=== PATIENT | female | born 1985 | race Caucasian/White ===

== ENCOUNTER 2017-11-05 15:36 | Outpatient (CLI) | payer OTHER ==
[2014-01-19 03:55] VITALS: BP 131/77
--- NOTE | 2017-11-05 16:39 | Diagnostic Imaging Report ---
[facility] [address] [facility] [address] 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 No fracture no dislocation. No soft tissue abnormality. Impression: No acute appearing osseous abnormality. Electronically signed on Nov 05, 2017 4:36:19 PM HUMANITIES DIVISION CHAIR by: Todd WU
--- NOTE | 2017-11-05 16:40 | Diagnostic Imaging Report ---
[facility] [address] [facility] [address] 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 No other cortical irregularities. No joint effusion. Impression: Possible radial head hairline fracture. Recommend obtaining CT elbow to further evaluate. Electronically signed on Nov 05, 2017 4:38:21 PM CLINIC BUSINESS MANAGER by: Todd WU
== END 2017-11-05 15:37 ==
LOC: RAD 15:36
PROVIDERS: ATTEND Family Medicine
DX: M25.551 Pain in right hip (principal); M25.521 Pain in right elbow
CPT/HCPCS: 73080; 73502